=== PATIENT | male | born 1970 | race Two or more races ===

== ENCOUNTER 2017-04-21 11:28 | Emergency (ER) | payer OTHER ==
[~2017-04-21] VITALS: Ht 188 cm; Wt 79.4 kg
--- NOTE | 2017-04-21 11:40 | NUR ---
BIB [facility] [employer] OFFICERS-- ,C/O CHEST PAIN WHILE BEING TRANSPORTED FROM [facility] TO COURT--[facility], 03/20, NON RADIATING.. ASA 162 MG AND NTG SPRAY X 2 GIVEN. PATIENT IS AFEBRILE. VSS. IV ON LAC 18 INTACT
[2017-04-21 11:47] LABS: BASOPHILS # (AUTO) 0.1 /CMM (0.0-0.2); BASOPHILS % (AUTO) 1.8 % (0.0-2.0); EOSINOPHILS # (AUTO) 0.1 /CMM (0.0-0.7); EOSINOPHILS % (AUTO) 1.3 % (0.0-6.0); HEMATOCRIT 47 % (39-51); HEMOGLOBIN 15.4 g/dL (13.5-17.5); LYMPHOCYTES # (AUTO) 2.2 /CMM (0.8-4.8); LYMPHOCYTES % (AUTO) 31.4 % (20.0-44.0); MEAN CORPUSCULAR HEMOGLOBIN 30 PG (26.0-33.0); MEAN CORPUSCULAR HGB CONC 33 g/dl (31.0-36.0); MEAN CORPUSCULAR VOLUME 94 fL (80-96); MONOCYTES # (AUTO) 0.4 /CMM (0.1-1.30); MONOCYTES % (AUTO) 5.4 % (2.0-12.0); NEUTROPHILS # (AUTO) 4.3 /CMM (1.8-8.9); NEUTROPHILS % (AUTO) 60.1 % (43.0-81.0); PLATELET COUNT (AUTO) 345 /CMM (150-450); RDW COEFFICIENT OF VARIATION 13.3 (11.5-15.0); RED BLOOD CELL COUNT(AUTO) 5.05 MIL/uL (4.5-6.0); WHITE BLOOD COUNT (AUTO) 7.1 K/uL (4.3-11.0)
[2017-04-21 11:57] LABS: CALCIUM, SERUM 9.1 mg/dL (8.5-10.1); CARBON DIOXIDE 32 mmol/L (21-32); CHLORIDE 102 mmol/L (98-107); CREATININE 1.1 mg/dL (0.6-1.3); GLUCOSE 86 mg/dL (74-106); SODIUM SERUM 140 mmol/L (136-145); UREA NITROGEN, BLOOD 18 mg/dL (7-18)
[2017-04-21] MEDS ORDERED: KETOROLAC TROMETHAMINE 15 MG/ML VIAL ONE (11:57)
[2017-04-21] MEDS ORDERED: ASPIRIN 325 MG TABLET ONE (11:57)
[2017-04-21 12:00] LABS: PROTHROMBIN TIME 10.4 SECS (9.5-12.7)
[2017-04-21] MEDS ORDERED: KETOROLAC TROMETHAMINE INJ 30 MG/ML VIAL IV ONE (12:00)
[2017-04-21] MEDS ORDERED: ASPIRIN 325 MG TABLET PO ONE (12:00)
--- NOTE | 2017-04-21 12:00 | NUR ---
ASSUME PT CARE. RESTING IN BED. SEEN BY [employer]. ON MONITOR W/ STABLE VITALS. ORDERS CARRIED OUT. WILL CONT TO MONITOR.
[2017-04-21 12:06] LABS: TROPONIN I < 0.017 ng/mL (0.00-0.056)
--- NOTE | 2017-04-21 14:44 | NUR ---
[employer] ASSISTANT AT BEDSIDE FOR REPEAT TROPONIN DRAW.
--- NOTE | 2017-04-21 15:23 | NUR ---
MEDICALLY CLEARED FOR BOOKING. D/C TO P IN STABLE CONDITION.
[2017-04-21 15:26] VITALS: BP 142/60
== END 2017-04-21 15:27 | disposition home or self-care (01) ==
LOC: ER 11:30
DX: R07.89 Other chest pain (principal); F43.9 Reaction to severe stress, unspecified; I10 Essential (primary) hypertension; Z87.891 Personal history of nicotine dependence
CPT/HCPCS: 36415; 71010; 80048; 84484 ×2; 85025; 85730; 93005 ×2; 96374; 99285; J1885

== ENCOUNTER → 2018-05-03 | Emergency (ER) | payer OTHER ==
[~2018-05-03] VITALS: Ht 175.3 cm; Wt 74.8 kg
--- NOTE | 2018-05-03 15:30 | NUR ---
BIB EMS C/O MID STERNAL CP, NON RADIATING X45 MINS S/P ARGUMENT WITH OFFICER IN COURT. ASA 325 MG, NITRO X2 GIVEN IN FIELD. PT AAOX3, VSS, DENIES SOB, DIZZINESS, N/V, ARM/JAW PAIN @ THIS TIME.
[2018-05-03 15:40] LABS: BASOPHILS # (AUTO) 0.1 /CMM (0.0-0.2); BASOPHILS % (AUTO) 1.6 % (0.0-2.0); EOSINOPHILS % (AUTO) 2.2 % (0.0-6.0); HEMATOCRIT 46 % (39-51); HEMOGLOBIN 15.4 g/dL (13.5-17.5); LYMPHOCYTES # (AUTO) 1.7 /CMM (0.8-4.8); LYMPHOCYTES % (AUTO) 23.4 % (20.0-44.0); MEAN CORPUSCULAR HEMOGLOBIN 31 PG (26.0-33.0); MEAN CORPUSCULAR HGB CONC 33 g/dl (31.0-36.0); MEAN CORPUSCULAR VOLUME 93 fL (80-96); MONOCYTES # (AUTO) 0.4 /CMM (0.1-1.30); MONOCYTES % (AUTO) 4.9 % (2.0-12.0); NEUTROPHILS % (AUTO) 67.9 % (43.0-81.0); PLATELET COUNT (AUTO) 406 /CMM (150-450); RDW COEFFICIENT OF VARIATION 13.3 (11.5-15.0); WHITE BLOOD COUNT (AUTO) 7.4 K/uL (4.3-11.0)
[2018-05-03 15:50] LABS: CARBON DIOXIDE 30 mmol/L (21-32); CHLORIDE 99 mmol/L (98-107); GLUCOSE 127 mg/dL (74-106); POTASSIUM 3.8 mmol/L (3.5-5.1); SODIUM SERUM 128 mmol/L (136-145); UREA NITROGEN, BLOOD 13 mg/dL (7-18)
[2018-05-03 15:54] LABS: INR 0.91 (0.85-1.15)
[2018-05-03 16:01] LABS: TROPONIN I < 0.017 ng/mL (0.00-0.056)
--- NOTE | 2018-05-03 16:38 | NUR ---
PT WILLIAMS, NAD NOTED & DC WITH [employer] OFFICERS.
--- NOTE | 2018-05-03 16:39 | NUR ---
Patient discharged WITH [employer] OFFICER in stable condition. Written and verbal after care instructions given. Patient verbalizes understanding of instruction.
[2018-05-03 16:42] VITALS: BP 132/74
== END ==
LOC: ER 15:17
DX: R07.89 Other chest pain (principal); I10 Essential (primary) hypertension; F17.200 Nicotine dependence, unspecified, uncomplicated
CPT/HCPCS: 36415; 71045; 80048; 84484; 85025; 85730; 93005; 99285; A4606; Z7610